=== PATIENT | male | born 1955 | race American Indian/Alaskan Native ===

== ENCOUNTER 2016-11-11 01:21 | Emergency (ER) | payer OTHER ==
[2016-11-11 03:04] VITALS: BP 190/90
== END 2016-11-11 05:00 | disposition left against medical advice (07) ==
LOC: ED 01:21
DX: R53.1 Weakness (principal); Z53.21 Procedure and treatment not carried out due to patient leaving prior to being seen by health care provider

== ENCOUNTER 2017-02-28 07:06 | Emergency (ER) | payer OTHER ==
[2017-02-28 07:30] VITALS: BP 177/94
[2017-02-28 08:07] LABS: Basophils % (Auto) 0.9 % (0.0-1.8); Eosinophils % (Auto) 3.5 % (0.0-4.3); Hematocrit 35.8 % (35.5-45.6); Hemoglobin 11.4 gm/dl (11.8-15.2); Mean Corpuscular HGB Conc 32 % (32-34); Mean Corpuscular Volume 81 fl (84-94); Platelet Count 180 K/mm3 (140-440); Red Blood Count 4.42 M/mm3 (3.65-5.03); White Blood Count 6.1 K/mm3 (4.5-11.0)
[2017-02-28 08:09] LABS: Mean Corpuscular Hemoglobin 26 pg (28-32)
[2017-02-28 08:10] LABS: Creatine Kinase MB 13.2 ng/mL (0.0-4.0)
[2017-02-28 08:11] LABS: Anion Gap 16 mmol/L; Blood Urea Nitrogen 16 mg/dL (9-20); Calcium 9.1 mg/dL (8.4-10.2); Carbon Dioxide 27 mmol/L (22-30); Chloride 99.8 mmol/L (98-107); Creatine Kinase 608 units/L (55-170); Glucose 84 mg/dL (75-100); Potassium 4.1 mmol/L (3.6-5.0); Sodium 139 mmol/L (137-145)
--- NOTE | 2017-03-01 13:27 | ED Elopement Review ---
ED Pt Elopement review - Results review Lab results: Laboratory Tests 02/28/17 02/28/17 07:34 07:34 WBC 6.1 RBC 4.42 Hgb 11.4 L Hct 35.8 MCV 81 L MCH 26 L MCHC 32 RDW 20.0 H Plt Count 180 Lymph % (Auto) 31.1 [place] % (Auto) 15.2 H Eos % (Auto) 3.5 Baso % (Auto) 0.9 Lymph # 1.9 [place] # 0.9 H Eos # 0.2 Baso # 0.1 Seg Neutrophils % 49.3 Seg Neutrophils # 3.0 Sodium 139 Potassium 4.1 Chloride 99.8 Carbon Dioxide 27 Anion Gap 16 BUN 16 Creatinine 0.8 Estimated GFR > 60 BUN/Creatinine Ratio 20.00 Glucose 84 Calcium 9.1 Total Creatine Kinase 608 H CK-MB (CK-2) Rel Index 2.1 Troponin T < 0.010 - Call Back decision Pt Call Back Decision: No action required
== END 2017-02-28 07:35 | disposition left against medical advice (07) ==
LOC: ED 07:06
DX: R07.9 Chest pain, unspecified (principal); Z53.21 Procedure and treatment not carried out due to patient leaving prior to being seen by health care provider
CPT/HCPCS: 36415; 80048; 82550; 82553; 84484; 85025; 93005; 93010

== ENCOUNTER 2017-05-10 00:18 | Emergency (ER) | payer SELFPAY ==
[2017-05-10 00:56] LABS: Basophils % (Auto) 0.7 % (0.0-1.8); Eosinophils % (Auto) 1.9 % (0.0-4.3); Hematocrit 40.3 % (35.5-45.6); Hemoglobin 13.1 gm/dl (11.8-15.2); Mean Corpuscular HGB Conc 33 % (32-34); Mean Corpuscular Hemoglobin 28 pg (28-32); Mean Corpuscular Volume 86 fl (84-94); Platelet Count 200 K/mm3 (140-440); Red Blood Count 4.71 M/mm3 (3.65-5.03); Red Cell Distribution Width 17.3 % (13.2-15.2); White Blood Count 6.3 K/mm3 (4.5-11.0)
[2017-05-10 01:06] LABS: Anion Gap 18 mmol/L; BUN/Creatinine Ratio 24.44; Blood Urea Nitrogen 22 mg/dL (9-20); Calcium 9.1 mg/dL (8.4-10.2); Carbon Dioxide 25 mmol/L (22-30); Chloride 98.6 mmol/L (98-107); Glucose 89 mg/dL (75-100); Potassium 3.9 mmol/L (3.6-5.0); Sodium 138 mmol/L (137-145)
[2017-05-10 01:07] LABS: INR 0.97 (0.87-1.13)
[2017-05-10 01:08] LABS: Partial Thromboplastin Time 29.5 Sec. (24.2-36.6)
--- NOTE | 2017-05-10 01:26 | Cat Scan Report ---
FINAL REPORT PROCEDURE: CT HEAD/BRAIN WO CON TECHNIQUE: Computerized tomography of the head was performed without contrast material. HISTORY: LT SIDED NUMBNESS H/A COMPARISON: No prior studies are available for comparison. FINDINGS: There is a 2.3 centimeter mass in the sella turcica which could be pituitary adenoma. Other etiologies not excluded. Correlation with contrast-enhanced MRI suggested. There is no hemorrhage, edema, mass effect or midline shift. There is mild central and cortical atrophy. There is no hydrocephalus. Ventricles and cortical sulci are appropriate for the patient's age. The bony calvarium is intact. Paranasal sinuses are clear. IMPRESSION: There is no hemorrhage, edema, mass effect or midline shift. There is a 2.3 centimeter mass in the sella turcica which could be pituitary adenoma. Other etiologies not excluded. Correlation with contrast-enhanced MRI suggested.
--- NOTE | 2017-05-10 06:31 | Emergency Department Report ---
ED Neuro Deficit HPI - General Chief Complaint: Neuro Symptoms/Deficit Stated Complaint: LEFT SIDE NUMBNESS Time Seen by Provider: 05/10/17 06:28 Source: patient Mode of arrival: Ambulatory Limitations: No Limitations - History of Present Illness Initial Comments: Patient reports a vague hemisensory numbness which did not involve his face. He complained of a mild headache at triage but this has resolved. He took 2 aspirin prior to arrival. Patient states that he was concerned with either a stroke or poor circulation. He reports he has had dark toes on his left foot chronically. He has never had his circulation evaluated in his foot prior. He is not complaining of numbness at this juncture. Before my arrival he had a CT of his head which showed a likely pituitary adenoma. The patient reports to me that he had a CT scan of his head but not an MRI prior. This was more than 5 years ago where a similar finding was discussed with him. He has no prior history of stroke. He was found to be hypertensive. -: Gradual, minutes(s) Location: left arm, left leg Presenting Symptoms: Absent: Weak/Paralyzed One Side, Sudden, Severe Headache, Blurred/Loss of Vision, Facial Droop/Numbness, Unable to Speak Clearly, Altered Mental Status History of same: No Place: home Severity: mild, moderate Quality: numb Improves With: none Worsens With: none On Anticoagulants: No Context: gradual onset Associated Symptoms: denies other symptoms Treatments Prior to Arrival: Aspirin - Related Data Home Medications: Home Medications Medication Instructions Recorded Confirmed Last Taken Losartan/Hydrochlorothiazide 1 each PO QDAY 12/14/16 12/14/16 12/14/16 06:30 [Losartan-Hctz 50-12.5 mg Tab] Allergies/Adverse Reactions: Allergies Allergy/AdvReac Type Severity Reaction Status Date / Time No Known Allergies Allergy Verified 12/14/16 07:23 ED Review of Systems ROS: Stated complaint: LEFT SIDE NUMBNESS Other details as noted in HPI Constitutional: denies: chills, fever Eyes: denies: eye pain, eye discharge, vision change ENT: denies: ear pain, throat pain Respiratory: denies: cough, shortness of breath, wheezing Cardiovascular: denies: chest pain, palpitations Endocrine: no symptoms reported Gastrointestinal: denies: abdominal pain, nausea, diarrhea Genitourinary: denies: urgency, dysuria Musculoskeletal: denies: back pain, joint swelling, arthralgia Skin: denies: rash, lesions Neurological: headache, numbness. denies: weakness, paresthesias Psychiatric: denies: anxiety, depression Hematological/Lymphatic: denies: easy bleeding, easy bruising ED Past Medical Hx - Past Medical History Previous Medical History?: Yes Hx Hypertension: Yes Hx CVA: No Hx Heart Attack/AMI: No Hx Congestive Heart Failure: No Hx Diabetes: Yes (NO MEDICATIONS) Hx Deep Vein Thrombosis: No Hx Pulmonary Embolism: No Hx GERD: No Hx Liver Disease: Yes (hep c. Pt has had anti viral therapy in past) Hx Renal Disease: No Hx Sickle Cell Disease: No Hx Arthritis: No Hx Headaches / Migraines: No Hx Seizures: No Hx Kidney Stones: No Hx Psychiatric Treatment: No Hx Asthma: No Hx COPD: No Hx Tuberculosis: No Hx Dementia: No Hx HIV: No Additional medical history: hep C - Surgical History Past Surgical History?: No Hx Coronary Stent: No Hx Open Heart Surgery: No Hx Pacemaker: No Hx Internal Defibrillator: No Hx Cholecystectomy: No Hx Appendectomy: No Hx Breast Surgery: No - Social History Smoking Status: Never Smoker Substance Use Type: Alcohol - Medications Home Medications: Home Medications Medication Instructions Recorded Confirmed Last Taken Type Losartan/Hydrochlorothiazide 1 each PO QDAY 12/14/16 12/14/16 12/14/16 06:30 History [Losartan-Hctz 50-12.5 mg Tab] ED Neuro Physical Exam - General Limitations: No Limitations General appearance: alert, in no apparent distress Suspected Stroke: No - Head Head exam: Present: atraumatic, normocephalic - Eye Eye exam: Present: normal appearance. Absent: scleral icterus - ENT ENT exam: Present: mucous membranes moist - Neck Neck exam: Present: normal inspection. Absent: tenderness, meningismus - Respiratory Respiratory exam: Present: normal lung sounds bilaterally. Absent: respiratory distress - Cardiovascular Cardiovascular Exam: Present: regular rate, normal rhythm. Absent: systolic murmur, diastolic murmur, rubs, gallop - GI/Abdominal GI/Abdominal exam: Present: soft, normal bowel sounds. Absent: distended, tenderness, guarding, rebound, rigid - Rectal Rectal exam: Present: deferred - Extremities Exam Extremities exam: Present: normal inspection - Back Exam Back exam: Present: normal inspection - Neurological Exam Neurological exam: Present: alert, oriented X3, CN II-XII intact. Absent: motor sensory deficit - NIHSS Assessment Interval: Baseline 1a. Level of Consciousness: alert 1b. LOC Questions: answers correctly 1c. LOC Commands: performs tasks correctly 2. Best Gaze: normal 3. Visual: no visual loss 4. Facial Palsy: normal symmetrical movement 5b. Motor Arm Right: no drift 5a. Motor Arm Left: no drift 6a. Motor Leg Left: no drift 6b. Motor Leg Right: no drift 7. Limb Ataxia: absent 8. Sensory: normal 9. Best Language: no aphasia 10. Dysarthria: normal 11. Extinction/Inattention: no abnormality Total Score: 0 Stroke Severity: No Stroke Symptoms - Psychiatric Psychiatric exam: Present: normal affect, normal mood - Skin Skin exam: Present: dry, intact, other (left foot is a bit cooler than the right foot). Absent: rash - Other Other exam information: Patient has a palpable posterior tibial pulse on the right but I do not feel foot pulses on the left. Right foot is a bit warmer than the left foot. The patient has onychomycosis but does have some black toenails. He appears to have decreased capillary refill in his foot as well. ED Course Vital Signs 05/10/17 05/10/17 05/10/17 00:22 04:19 05:59 Temperature 98.5 F Pulse Rate 71 63 64 Respiratory 22 18 18 Rate Blood Pressure 156/89 182/94 Blood Pressure 171/66 [Left] Blood Pressure [Right] O2 Sat by Pulse 98 100 100 Oximetry 05/10/17 07:44 Temperature 98 F Pulse Rate 95 H Respiratory 18 Rate Blood Pressure Blood Pressure [Left] Blood Pressure 189/103 [Right] O2 Sat by Pulse 95 Oximetry - Reevaluation(s) Reevaluation #1: I believe the patient is correct that he does have poor circulation to his left foot. He states that his foot has looked the same way for months if not years. He has never had an assessment for peripheral vascular disease which I believe he does have. Patient is found to have a likely pituitary adenoma. His hemisensory symptoms are consistent with cerebrovascular disease. He is hypertensive so he is at rest. He will be admitted for a stroke workup and a peripheral vascular disease workup. He does not require acute intervention at this time. He is not a candidate for TPA and has a stroke score of 0. He is not suffering from acute limb ischemia. Pending his vascular studies a vascular surgery consult may be appropriate. Hospitalist has been informed. 05/10/17 07:53 - Lab Data Result diagrams: 05/10/17 00:33 05/10/17 00:33 Lab Results 05/10/17 05/10/17 05/10/17 Range/Units 00:28 00:33 00:33 WBC 6.3 (4.5-11.0) K/mm3 RBC 4.71 (3.65-5.03) M/mm3 Hgb 13.1 (11.8-15.2) gm/dl Hct 40.3 (35.5-45.6) % MCV 86 (84-94) fl MCH 28 (28-32) pg MCHC 33 (32-34) % RDW 17.3 H (13.2-15.2) % Plt Count 200 (140-440) K/mm3 Lymph % (Auto) 25.2 (13.4-35.0) % [place] % (Auto) 12.6 H (0.0-7.3) % Eos % (Auto) 1.9 (0.0-4.3) % Baso % (Auto) 0.7 (0.0-1.8) % Lymph # 1.6 (1.2-5.4) K/mm3 [place] # 0.8 (0.0-0.8) K/mm3 Eos # 0.1 (0.0-0.4) K/mm3 Baso # 0.0 (0.0-0.1) K/mm3 Seg Neutrophils % 59.6 (40.0-70.0) % Seg Neutrophils # 3.7 (1.8-7.7) K/mm3 PT 13.4 (12.2-14.9) Sec. INR 0.97 (0.87-1.13) APTT 29.5 (24.2-36.6) Sec. Thrombin Time 16.0 (15.1-19.6) Sec. Sodium (137-145) mmol/L Potassium (3.6-5.0) mmol/L Chloride (98-107) mmol/L Carbon Dioxide (22-30) mmol/L Anion Gap mmol/L BUN (9-20) mg/dL Creatinine (0.8-1.5) mg/dL Estimated GFR ml/min BUN/Creatinine Ratio % Glucose (75-100) mg/dL POC Glucose 96 (70-105) Calcium (8.4-10.2) mg/dL Troponin T (0.00-0.029) ng/mL 05/10/17 Range/Units 00:33 WBC (4.5-11.0) K/mm3 RBC (3.65-5.03) M/mm3 Hgb (11.8-15.2) gm/dl Hct (35.5-45.6) % MCV (84-94) fl MCH (28-32) pg MCHC (32-34) % RDW (13.2-15.2) % Plt Count (140-440) K/mm3 Lymph % (Auto) (13.4-35.0) % [place] % (Auto) (0.0-7.3) % Eos % (Auto) (0.0-4.3) % Baso % (Auto) (0.0-1.8) % Lymph # (1.2-5.4) K/mm3 [place] # (0.0-0.8) K/mm3 Eos # (0.0-0.4) K/mm3 Baso # (0.0-0.1) K/mm3 Seg Neutrophils % (40.0-70.0) % Seg Neutrophils # (1.8-7.7) K/mm3 PT (12.2-14.9) Sec. INR (0.87-1.13) APTT (24.2-36.6) Sec. Thrombin Time (15.1-19.6) Sec. Sodium 138 (137-145) mmol/L Potassium 3.9 (3.6-5.0) mmol/L Chloride 98.6 (98-107) mmol/L Carbon Dioxide 25 (22-30) mmol/L Anion Gap 18 mmol/L BUN 22 H (9-20) mg/dL Creatinine 0.9 (0.8-1.5) mg/dL Estimated GFR > 60 ml/min BUN/Creatinine Ratio 24.44 % Glucose 89 (75-100) mg/dL POC Glucose (70-105) Calcium 9.1 (8.4-10.2) mg/dL Troponin T < 0.010 (0.00-0.029) ng/mL Laboratory Results - last 24 hr 05/10/17 05/10/17 05/10/17 00:33 00:33 00:33 WBC 6.3 RBC 4.71 Hgb 13.1 Hct 40.3 MCV 86 MCH 28 MCHC 33 RDW 17.3 H Plt Count 200 Lymph % (Auto) 25.2 [place] % (Auto) 12.6 H Eos % (Auto) 1.9 Baso % (Auto) 0.7 Lymph # 1.6 [place] # 0.8 Eos # 0.1 Baso # 0.0 Seg Neutrophils % 59.6 Seg Neutrophils # 3.7 PT 13.4 INR 0.97 APTT 29.5 Thrombin Time 16.0 Sodium 138 Potassium 3.9 Chloride 98.6 Carbon Dioxide 25 Anion Gap 18 BUN 22 H Creatinine 0.9 Estimated GFR > 60 BUN/Creatinine Ratio 24.44 Glucose 89 Calcium 9.1 Troponin T < 0.010 Critical care attestation.: If time is entered above; I have spent that time in minutes in the direct care of this critically ill patient, excluding procedure time. ED Disposition Clinical Impression: Hemisensory deficit, Peripheral vascular disease of lower extremity, Essential hypertension Disposition: OP ADMIT IP TO THIS HOSP Is pt being admited?: Yes Does the pt Need Aspirin: Yes Condition: Stable Instructions: Hypertension (ED) Referrals: PRIMARY CARE, [Primary Care Provider] - 3-5 Days Time of Disposition: 07:55
[2017-05-10] MEDS ORDERED: ASPIRIN PO ONE (07:31)
[2017-05-10 07:45] VITALS: BP 189/103
--- NOTE | 2017-05-10 08:16 | Admit Criteria Form ---
Admission Criteria Documentation: NEUROLOGY GRG Clinical Indications for Admission to Inpatient Care (Place ' X' for any and all applicable criteria): Hospital admission is needed for appropriate care of the patient because of 1 or more of the following: [ ]I. Encephalitis [ ]II. Severe [place] [place] [place] infections indicated by 1 or more of the following(1)(2)(3) : [ ]a) Intracranial abscess [ ]b) Spinal abscess or myelitis [ ]c) Tuberculous or other nonbacterial, nonviral [place] infection(8) [ ]III. Vasculitis and 1 or more of the following(14)(15): []a) Altered mental status that is severe or persistent or other acute neurologic change []b) Psychosis []c) Seizure [ ]IV. Status epilepticus or repetitive seizures not controlled with emergent treatment [A] (7)(8) [ ]V. Altered mental status that is severe or persistent [ ]. Transient alteration in consciousness with high-risk etiology; examples include (12)(13): [ ]a) Cardiovascular source [ ]b) Cataplexy [ ]VII. Cerebral aneurysm requiring ANY ONE of the following(14): [ ]a) IV antihypertensives or vasoactive agents [ ]b) Sedation and analgesia for suspected leak [ ]c) Need for external ventricular drainage and cerebral perfusion pressure monitoring [ ]d) Emergent evaluation to determine need for surgical clipping or endovascular coiling by interventional radiology. If surgery is required ( Also use Craniotomy, Supratentorial, for Surgery of Bleeding Intracranial Aneurysm (for bleeding aneurysm) or Craniotomy, Supratentorial (for nonbleeding aneurysm) as appropriate. [ ]VIII. New-onset severe neurologic symptom requiring inpatient care indicated by ANY ONE of the following: [ ]a) Aphasia(15) [ ]b) Weakness (grade 3 or less) [ ]c) Paralysis (eg, hemiplegia) [ ]d) Spasticity(16) [ ]e) Dystonia [ ]e) Ataxia(17) [ ]f) Amnesia(18) [ ]g) Involuntary movements(19) [ ]h) Vertigo [ ] Visual loss [ ]i) Other severe neurologic finding (eg, papilledema, mass effect on imaging, myoclonus not treatable at alternative level of care (eg, observation care) [ ]IX. Guillain-Lawrence syndrome(20) [ ]X. Myasthenia gravis crisis or inpatient monitoring need as indicated by 1 or more of the following(21): [ ]a) Intensive treatment (eg, course of plasmapheresis) with inadequate outpatient situation to monitor patients status [ ]b) Inadequate airway protection [ ]c) Respiratory insufficiency requiring intubation or inpatient. monitoring [ ]d) Progressive dysphagia with failure to thrive [ ]XI. Multiple sclerosis or other acute demyelinating disease requiring inpatient care as indicated by 1 or more of the following (22)(23): [ ]a) Acute severe deterioration requiring inpatient treatment (eg, IV steroids, plasmapheresis, close observation) [ ]b) Acute complication requiring inpatient care (eg, sepsis, severe decubitus, aspiration) [ ]XII.Parkinson disease requiring inpatient care (Also use Optimal Recovery Care Criteria or General Recovery Criteria as appropriate) indicated by 1 or more of the following(25): [ ]a) Infection (eg, aspiration pneumonia) not treatable at alternative level of care [ ]b Dehydration that is severe or persistent [ ]c) Life-threatening agitation or psychotic behavior not treatable on emergency, observation care, or alternative level (eg, residential) basis [ ]d) Severe medication withdrawal effects (eg, freezing, neuroleptic malignant syndrome) not responsive to emergency and observation care treatment ( as appropriate) [ ]e) Other severe manifestation not treatable at alternative level of care [ ]XII. Amyotrophic lateral sclerosis with inpatient care needs as indicated by ANY ONE of the following(26): [ ]a) Acute complications (eg, aspiration pneumonia, sepsis ) requiring inpatient care ( see other optimal Recovery Guideline as appropriate) [ ]b) Dehydration that is severe persistent AND artificial support desired [ ]c) Inadequate airway protection AND artificial support desired [ ]d) Severe ventilatory insufficiency AND artificial support desired [ ]XIII. Myasthenia gravis crisis or inpatient monitoring need as indicated by 1 or more of the following(21): [] a) Inadequate airway protection []b) Respiratory insufficiency requiring intubation or inpatient monitoring []c) Progressive dysphagia with failure to thrive []d) Intensive treatment (e.g., course of plasmapheresis) with inadequate outpatient situation to monitor patients status [ ]XIV. Multiple sclerosis or other acute demyelinating disease requiring inpatient care indicated by 1 or more of the following[C](36)(43)(44)(45)(46): []a) Acute severe deterioration requiring inpatient treatment (eg, IV steroids, plasmapheresis, close observation) []b) Acute complication requiring inpatient care (eg, sepsis, severe decubitus, aspiration) [ ]XV. Intracranial hypertension (e.g., pseudotumor cerebri) requiring inpatient care (e.g., acute visual loss, inadequate oral intake) (47)(48)(49) [ ]XVI. Parkinson disease requiring inpatient care (Also use Optimal Recovery Care Criteria or General Recovery Criteria as appropriate) indicated by 1 or more of the following(25): [] a) Infection (e.g., aspiration pneumonia) not treatable at alternative level of care []b) Volume depletion not responsive to emergency and observation care treatment (as appropriate) []c) Life-threatening agitation or psychotic behavior not treatable on emergency, observation care, or alternative level (e.g., residential) basis []d) Severe medication withdrawal effects (e.g., freezing, neuroleptic malignant syndrome) not responsive to emergency and observation care treatment (as appropriate) []e) Other severe manifestation not treatable at alternative level of care [ ]XVII. Amyotrophic lateral sclerosis with inpatient care needs as indicated by1 or more of the following(42): []a) Acute complications (eg, aspiration pneumonia, sepsis) requiring inpatient care (see other Optimal Recovery Guideline or General Recovery Guideline as appropriate) []b) Dehydration that is severe or persistent AND artificial support desired []c) Inadequate airway protection AND artificial support desired []d) Severe ventilatory insufficiency AND artificial support desired [ ]XVIII. Severe myopathy, neuropathy, or other neuromuscular disease indicated by 1 or more of the following(42)(52)(53)(54): []a ) New-onset severe diffuse weakness (eg, strength 3/5 or less) []b) Severe dysphagia []c) Dyspnea at rest or with minimal exertion (new) []d) Inadequate airway protection []e) Inadequate ventilation indicated by 1 or more of the following : i) Partial pressure of carbon dioxide greater than 44 mm Hg ( 5.9 kPa) (new) ii) Reduced peak expiratory flow rate (new) iii) Vital capacity less than 50% of predicted (less than 15 mL/kg) iv) Peak inspiratory force less negative than -30 cm H2O (- 2942 Pa) [ ]XVII.Complications of congenital or degenerative disease (eg, infection, seizures, dehydration, injury) not responsive to emergency and observation care treatment (as appropriate ) [C](16)(29)(30) [ ]XVIII.Suspected or confirmed nerve or muscle toxic injury, including ANY ONE of the following: [ ]a) Rhabdomyolysis(31) i) Acute renal failure ii) Dehydration that is severe or persistent iii) Altered mental status that is severe or persistent iv) Electrolyte abnormality that remains after emergency or observation level care ( as appropriate) [ ]b) Botulism(32) [ ]c) Other severe toxin-induced sign or symptom [ ]XIX. Neurologic trauma requiring inpatient treatment (medical) indicated by ANY ONE of the following(33)(34): [ ]a) Vital signs or neurologic signs more frequently than every 4 hours [ ]b) Hyperosmolar therapy [ ]c) Respiratory monitoring [ ]d) Intracranial pressure monitoring and treatment [ ]e) Stabilization and immobilization device placement (eg, braces, body jacket) [ ]f) Intubation & mechanical ventilation for airway protection or therapeutic hyperventilation [ ]g) Other treatment or monitoring needed that requires inpatient level of care [ ]XX.Complications of neurologic devices (eg, ventricular shunt, neurostimulator) requiring 1 or more of the following(35)(36): [ ]a) IV antibiotics with monitoring while awaiting culture results [ ]b) Monitoring for hydrocephalus [X ]XXI. Neurology condition symptom, or finding for which emergency and observation care have failed or are not considered appropriate. See General Criteria: Observation Care ISC, General Admission Criteria GRG, or Pediatric General Admission Criteria GRG guideline as appropriate. The original [facility] [employer] content created by [employer] [facility] [employer] [employer] has been revised. The portions of the content which have been revised are identified through the use of italic text or in bold, and [facility] has neither reviewed nor approved the modified material. All other unmodified content is copyright [facility] Please see references footnoted in the original [facility] [employer] edition 2016 Admission Criteria Met: Yes
[2017-05-10] MEDS ORDERED: MILK OF MAGNESIA PO PRN (08:39)
[2017-05-10] MEDS ORDERED: MORPHINE IV PRN (08:39)
[2017-05-10] MEDS ORDERED: ZOFRAN IV PRN (08:39)
[2017-05-10] MEDS ORDERED: DULCOLAX PR PRN (08:39)
[2017-05-10] MEDS ORDERED: TYLENOL PO PRN (08:39)
--- NOTE | 2017-05-10 08:50 | XRay Report ---
AP CHEST: HISTORY: Hypertension AP view of the chest demonstrates a normal mediastinal and cardiac contour with clear lungs and normal bony and soft tissue structures. IMPRESSION: Unremarkable AP chest.
[2017-05-10] MEDS ORDERED: LOVENOX SUB-Q SCH (10:00)
[2017-05-10] MEDS ORDERED: ASPIRIN PO SCH (10:00)
--- NOTE | 2017-05-11 11:50 | Vascular Lab Report ---
LOWER EXTREMITY ARTERIAL DUPLEX: REASON FOR EXAM: Peripheral arterial disease. COMMENTS ON THE RIGHT: Triphasic waveforms are seen proximally. Triphasic waveforms are seen distally. No significant velocity gradients are identified. No focal significant plaque is identified. Findings are consistent with normal perfusion. Findings are consistent with the ability to heal distal wounds. COMMENTS ON THE LEFT: Triphasic waveforms are seen proximally. Biphasic waveforms are seen distally. No significant velocity gradients are identified. No focal significant plaque is identified. Findings are consistent with normal perfusion. Findings are consistent with the ability to heal distal wounds. IMPRESSION: RIGHT: Essentially normal arterial flow. LEFT:Essentially normal arterial flow.
== END 2017-05-10 10:00 | disposition admitted as inpatient to this hospital (09) ==
LOC: ED 00:18
DX: I73.9 Peripheral vascular disease, unspecified (principal); I10 Essential (primary) hypertension
CPT/HCPCS: 36415; 70450; 71010; 80048; 82962; 84484; 85025; 85610; 85670; 85730; 93005; 93010; 93925

== ENCOUNTER 2017-08-17 01:04 | Emergency (ER) | payer SELFPAY ==
[2017-08-17 09:03] VITALS: BP 169/88
--- NOTE | 2017-08-17 10:09 | Emergency Department Report ---
Upper Extremity - HPI Chief Complaint: Extremity Injury, Upper Stated Complaint: LT ELBOW INJURY Time Seen by Provider: 08/17/17 09:16 Upper Extremity: Right Elbow (pain and swelling) Occurred When: >5 Days (6 months) Mechanism: Other (h/o bursitis) Severity: severe (7/10) Symptoms: Yes Pain with Movement (lt elbow), Yes Swelling (left swelling), No Deformity, No Limited Range of Movement, No Numbness, No Weakness, No Bruising/ Ecchymosis, No Laceration or Abrasion Other History: Patient here reports that he has flare up of bursitis to his left elbow. He said he has had similar incident in the past that it was drained. Denies any fever or chills. Denies any redness at site. Pain is 7 out of 10 only with movement. Pain is better or resting. He has not taken any [id number] medication.. Said this pain increasing over the past 6 months but he has not had any time to seek medical attention. Tetanus vaccine is up-to -date. ED Review of Systems ROS: Stated complaint: LT ELBOW INJURY Other details as noted in HPI Comment: All other systems reviewed and negative Constitutional: no symptoms reported Respiratory: no symptoms reported Cardiovascular: denies: chest pain, palpitations, edema, syncope Gastrointestinal: denies: abdominal pain, nausea, vomiting, diarrhea, constipation Musculoskeletal: joint swelling, arthralgia. denies: back pain, myalgia Skin: denies: rash Neurological: denies: headache, weakness, numbness, paresthesias, confusion, abnormal gait, vertigo ED Past Medical Hx - Past Medical History Previous Medical History?: Yes Hx Hypertension: Yes Hx CVA: No Hx Heart Attack/AMI: No Hx Congestive Heart Failure: No Hx Diabetes: Yes (NO MEDICATIONS) Hx Deep Vein Thrombosis: No Hx Pulmonary Embolism: No Hx GERD: No Hx Liver Disease: Yes (hep c. Pt has had anti viral therapy in past) Hx Renal Disease: No Hx Sickle Cell Disease: No Hx Arthritis: No Hx Headaches / Migraines: No Hx Seizures: No Hx Kidney Stones: No Hx Psychiatric Treatment: No Hx Asthma: No Hx COPD: No Hx Tuberculosis: No Hx Dementia: No Hx HIV: No Additional medical history: hep C - Surgical History Past Surgical History?: No Hx Coronary Stent: No Hx Open Heart Surgery: No Hx Pacemaker: No Hx Internal Defibrillator: No Hx Cholecystectomy: No Hx Appendectomy: No Hx Breast Surgery: No - Family History Family history: no significant - Social History Smoking Status: Never Smoker Substance Use Type: Alcohol - Medications Home Medications: Home Medications Medication Instructions Recorded Confirmed Last Taken Type Losartan/Hydrochlorothiazide 1 each PO QDAY 12/14/16 12/14/16 12/14/16 06:30 History [Losartan-Hctz 50-12.5 mg Tab] Naproxen 500 mg PO Q12H PRN #12 tablet 08/17/17 Unknown Rx Upper Extremity Exam - Exam General: Vital signs noted. No distress. Alert and acting appropriately. This is a 62-year-old male well-nourished well-developed in no acute distress Head and Torso: No HEENT Abnormality, No Neck Tenderness, No Chest/Lungs Abnormality, No Abdominal Tenderness, No Back Tenderness Shoulder Exam: Yes Normal Range of Motion in Shoulder, No Shoulder Tenderness, No Clavicle Tenderness, No Shoulder Deformity, No AC Joint Tenderness Arm Exam: No Arm/Humerus Tenderness, No Arm Deformity Elbow: Yes Elbow Tenderness (left elbow, swelling and effusion), Yes Normal Range of Motion in Elbow, No Elbow Deformity Forearm: No Forearm Tenderness, No Forearm Deformity, No Pain with Pronation, No Pain with Supination Wrist: Yes Normal ROM in Wrist, No Wrist Tenderness, No Wrist Deformity, No Snuffbox Tenderness, No Pain with Axial Thumb Compression Hand: Yes Normal ROM in Digit(s), No Hand Tenderness, No Hand Deformity, No Digit Tenderness, No Digit(s) Deformity, No Tendon Dysfunction CMS Exam: Yes Normal Distal Pulses, Yes Normal Capillary Refill, Yes Normal Distal Sensation, No Broken Skin ED Course Vital Signs 08/17/17 08/17/17 01:18 09:02 Temperature 98.2 F 97.8 F Pulse Rate 63 67 Respiratory 20 16 Rate Blood Pressure 158/85 Blood Pressure 169/88 [Left] O2 Sat by Pulse 100 100 Oximetry - Reevaluation(s) Reevaluation #1: 08/17/17 11:35 Patient given Motrin 800 mg in emergency room for left elbow pain .See procedure note for incision and drainage. ED Medical Decision Making - Medical Decision Making ED course: Patient here reports flare up of bursitis and this has been going on for 6 months and he has not had time to seek medical attention. Physical findings for positive effusion, swelling to left elbow. Minimal tenderness to palpate and no erythema. Under sterile procedure, area cleansed with iodine and normal saline, 5 mL of 1% lidocaine injected in the area and aspirated 10 mL of yellow drainage without any sediments. No bloody drainage noted. Patient tolerated procedure well and sterile dry dressing placed the side. I instructed patient that I'll put him on anti-inflammatory and he will need to keep affected ear clean and dry and follow-up with orthopedic doctor regarding recurrent fluid collection in left elbow. He voiced understanding of discharge instruction and treatment plan and discharged home in stable condition with prescription for naproxen. Critical care attestation.: If time is entered above; I have spent that time in minutes in the direct care of this critically ill patient, excluding procedure time. ED Disposition Clinical Impression: Arthralgia of left elbow, Effusion, left elbow Disposition: DC- TO HOME OR SELFCARE Is pt being admited?: No Does the pt Need Aspirin: No Condition: Stable Instructions: Arthralgia (ED), Elbow Bursitis (ED) Additional Instructions: Please keep affected area clean and dry Naproxen as prescribed for inflammation Follow-up with Dr. Comer who is orthopedic doctor for chronic elbow bursitis Prescriptions: Naproxen 500 mg PO Q12H PRN #12 tablet PRN Reason: Pain Referrals: MANJIT COMER MD [Staff Physician] - 3-5 Days Forms: Work/School Release Form(ED)
[2017-08-17] MEDS ORDERED: XYLOCAINE 1% MPF 5 mL INFILTRATI ONE (10:10)
[2017-08-17] MEDS ORDERED: MOTRIN PO ONE (10:10)
== END 2017-08-17 14:01 | disposition left against medical advice (07) ==
LOC: ED 01:04
DX: M25.422 Effusion, left elbow (principal); I10 Essential (primary) hypertension; E11.9 Type 2 diabetes mellitus without complications
CPT/HCPCS: 99282

== ENCOUNTER 2017-10-25 10:51 | Emergency (ER) | payer SELFPAY | END 2017-10-25 17:45 | disposition left against medical advice (07) | LOC: ED 10:51 | DX: Z53.21 Procedure and treatment not carried out due to patient leaving prior to being seen by health care provider (principal) ==

== ENCOUNTER 2017-12-07 04:13 | Emergency (ER) | payer SELFPAY ==
[2017-12-07 05:29] VITALS: BP 192/104
[2017-12-07] MEDS ORDERED: CATAPRES ONE (06:10)
[2017-12-07] MEDS ORDERED: CATAPRES PO ONE (06:16)
--- NOTE | 2017-12-07 06:21 | XRay Report ---
FINAL REPORT EXAM: XR FOOT 2V LT HISTORY: Swollen great toe. TECHNIQUE: Frontal lateral radiographs of the left foot were obtained. No prior studies are available for comparison. FINDINGS: There is no fracture or dislocation. There is mild soft tissue swelling seen along the 1st digit. There is degenerative change at the 1st interphalangeal joint, with medial and lateral marginal spurring, and subcentimeter probable subchondral cysts laterally. There minimal enthesopathic change along the posterior calcaneus, at the distal Achilles tendon insertion site. No other discrete osseous abnormality is seen. IMPRESSION: 1. No fracture or dislocation. 2. Mild soft tissue swelling seen along the 1st digit. [id number] degenerative changes at the 1st interphalangeal joint.
--- NOTE | 2017-12-07 09:41 | Emergency Department Report ---
ED Lower Extremity HPI - General Chief Complaint: Extremity Injury, Lower Stated Complaint: LT GREAT TOE SWELLING/PAIN Time Seen by Provider: 12/07/17 09:38 Source: patient Mode of arrival: Ambulatory Limitations: No Limitations - History of Present Illness Initial Comments: This is a 62 y.o. male presents with left great to pain and swelling since last night around 2300. Pain is 10/10 on scale and unbearable to anything to touch area. Pain is constant and worse with movement. Denies recent fall or injury to foot. History of diabetes mellitus type 2 and hepatitis C. Denies numbness, tingling or discoloration. He is able to partially bear weight to extremity. MD Complaint: foot injury (left great toe swollen and pain) -: Last night Time: 23:00 Injury: Foot: Left (left great toe) Type of Injury: unknown Place: home Severity: severe Severity scale (0 -10): 10 Improves With: nothing Worsens With: weight bearing, movement, palpation Associated Symptoms: able to partially bear weight - Related Data Home Medications Medication Instructions Recorded Confirmed Last Taken Losartan/Hydrochlorothiazide 1 each PO QDAY 12/14/16 12/14/16 12/14/16 06:30 [Losartan-Hctz 50-12.5 mg Tab] Previous Rx's Medication Instructions Recorded Last Taken Type Naproxen 500 mg PO Q12H PRN #12 tablet 08/17/17 Unknown Rx Allergies Allergy/AdvReac Type Severity Reaction Status Date / Time No Known Allergies Allergy Verified 12/14/16 07:23 ED Review of Systems ROS: Stated complaint: LT GREAT TOE SWELLING/PAIN Other details as noted in HPI Constitutional: denies: chills, fever Respiratory: denies: cough, shortness of breath, wheezing Cardiovascular: denies: chest pain, palpitations Gastrointestinal: denies: abdominal pain, nausea, diarrhea Musculoskeletal: joint swelling (great tow swelling and pain to touch) Skin: denies: rash, lesions ED Past Medical Hx - Past Medical History Previous Medical History?: Yes Hx Hypertension: Yes Hx CVA: No Hx Heart Attack/AMI: No Hx Congestive Heart Failure: No Hx Diabetes: Yes (NO MEDICATIONS) Hx Deep Vein Thrombosis: No Hx Pulmonary Embolism: No Hx GERD: No Hx Liver Disease: Yes (hep c. Pt has had anti viral therapy in past) Hx Renal Disease: No Hx Sickle Cell Disease: No Hx Arthritis: No Hx Headaches / Migraines: No Hx Seizures: No Hx Kidney Stones: No Hx Psychiatric Treatment: No Hx Asthma: No Hx COPD: No Hx Tuberculosis: No Hx Dementia: No Hx HIV: No Additional medical history: hep C - Surgical History Past Surgical History?: No Hx Coronary Stent: No Hx Open Heart Surgery: No Hx Pacemaker: No Hx Internal Defibrillator: No Hx Cholecystectomy: No Hx Appendectomy: No Hx Breast Surgery: No - Social History Smoking Status: Former Smoker Substance Use Type: Alcohol - Medications Home Medications: Home Medications Medication Instructions Recorded Confirmed Last Taken Type Losartan/Hydrochlorothiazide 1 each PO QDAY 12/14/16 12/14/16 12/14/16 06:30 History [Losartan-Hctz 50-12.5 mg Tab] Naproxen 500 mg PO Q12H PRN #12 tablet 08/17/17 Unknown Rx ED Physical Exam - General Limitations: No Limitations General appearance: alert, in no apparent distress - Respiratory Respiratory exam: Present: normal lung sounds bilaterally. Absent: respiratory distress - Cardiovascular Cardiovascular Exam: Present: regular rate, normal rhythm. Absent: systolic murmur, diastolic murmur, rubs, gallop - GI/Abdominal GI/Abdominal exam: Present: soft, normal bowel sounds - Expanded Lower Extremity Exam Left Hip exam: Present: full ROM, tenderness Upper Leg exam: Present: normal inspection, full ROM Knee exam: Present: normal inspection, full ROM Lower Leg exam: Present: normal inspection, full ROM Ankle exam: Present: normal inspection, full ROM Foot/Toe exam: Present: tenderness (on palpation of distal IP joint), swelling ( along 1st digit). Absent: laceration, ecchymosis, deformity, crepidus, dislocation, erythema, amputation, puncture wound, tenderness at base of 5th metatarsal - Neurological Exam Neurological exam: Present: alert, oriented X3, abnormal gait (partial weight bearing to left foot) - Skin Skin exam: Present: warm, dry, intact, normal color. Absent: rash ED Course Vital Signs 12/07/17 12/07/17 05:23 06:19 Temperature 98.5 F Pulse Rate 67 Blood Pressure 192/104 192/104 O2 Sat by Pulse 98 Oximetry ED Lower Extremity MDM - Radiology Data Radiology results: image reviewed Xray left foot IMPRESSION: 1. No fracture or dislocation. 2. Mild soft tissue swelling seen along the 1st digit. [id number] degenerative changes at the 1st interphalangeal joint. - Medical Decision Making This is a 62 y.o. male with painful swollen left great toe for 1 day. Xray of left foot obtained and read by radiologist. No fracture, mild soft tissure swelling along 1st digit, and mild to moderated degenerative changes. Ordered uric acid, BMP, & CBC. Patient eloped prior to labs. Critical care attestation.: If time is entered above; I have spent that time in minutes in the direct care of this critically ill patient, excluding procedure time. ED Disposition Clinical Impression: Left against medical advice Disposition: DC-07 LEFT AGAINST MED ADVICE Is pt being admited?: No Condition: Stable Referrals: PRIMARY CARE, [Primary Care Provider] - 3-5 Days
== END 2017-12-07 11:08 | disposition left against medical advice (07) ==
LOC: ED 04:13
DX: M79.675 Pain in left toe(s) (principal); I10 Essential (primary) hypertension; E11.9 Type 2 diabetes mellitus without complications; Z87.891 Personal history of nicotine dependence
CPT/HCPCS: 82962; 99283

== ENCOUNTER 2017-12-07 13:17 | Emergency (ER) | payer SELFPAY ==
[2017-12-07 13:53] VITALS: BP 128/84
== END 2017-12-08 01:48 | disposition left against medical advice (07) ==
LOC: ED 13:17
DX: M79.89 Other specified soft tissue disorders (principal); Z53.21 Procedure and treatment not carried out due to patient leaving prior to being seen by health care provider

== ENCOUNTER 2017-12-18 18:14 | Emergency (ER) | payer SELFPAY ==
--- NOTE | 2017-12-18 20:55 | Emergency Department Report ---
<TIANNA BERMAN - Last Filed: 12/18/17 20:51> ED Eye Problem HPI - General Chief complaint: Eye Problems Stated complaint: EYE PROBLEMS Time Seen by Provider: 12/18/17 20:36 Source: patient Mode of arrival: Ambulatory Limitations: No Limitations - History of Present Illness Initial comments: Patient is a 62-year-old Citizen Of [place] male who is presented with right eye issues. Patient states that from the right eye he can only see on of certain things and he states that his inferior visual field feels as though something is blocking his view. Patient is worried that he has a cataract. Patient states he feels like something is in front of his field of view. Patient states he has a slight bandlike headache. Patient states he knows he has been off of his blood pressure medicines and is requesting lisinopril. Patient denies any chest pain shortness of breath. Patient also denies any other focal neurological deficit. - Related Data Home Medications Medication Instructions Recorded Confirmed Last Taken Losartan/Hydrochlorothiazide 1 each PO QDAY 12/14/16 12/14/16 12/14/16 06:30 [Losartan-Hctz 50-12.5 mg Tab] Previous Rx's Medication Instructions Recorded Last Taken Type Naproxen 500 mg PO Q12H PRN #12 tablet 08/17/17 Unknown Rx Allergies Allergy/AdvReac Type Severity Reaction Status Date / Time No Known Allergies Allergy Verified 12/14/16 07:23 ED Review of Systems ROS: Stated complaint: EYE PROBLEMS Other details as noted in HPI Comment: All other systems reviewed and negative ED Past Medical Hx - Past Medical History Hx Hypertension: Yes Hx CVA: No Hx Heart Attack/AMI: No Hx Congestive Heart Failure: No Hx Diabetes: Yes (NO MEDICATIONS) Hx Deep Vein Thrombosis: No Hx Pulmonary Embolism: No Hx GERD: No Hx Liver Disease: Yes (hep c. Pt has had anti viral therapy in past) Hx Renal Disease: No Hx Sickle Cell Disease: No Hx Arthritis: No Hx Headaches / Migraines: No Hx Seizures: No Hx Kidney Stones: No Hx Psychiatric Treatment: No Hx Asthma: No Hx COPD: No Hx Tuberculosis: No Hx Dementia: No Hx HIV: No Additional medical history: hep C - Surgical History Hx Coronary Stent: No Hx Open Heart Surgery: No Hx Pacemaker: No Hx Internal Defibrillator: No Hx Cholecystectomy: No Hx Appendectomy: No Hx Breast Surgery: No - Social History Smoking Status: Never Smoker Substance Use Type: None - Medications Home Medications: Home Medications Medication Instructions Recorded Confirmed Last Taken Type Losartan/Hydrochlorothiazide 1 each PO QDAY 12/14/16 12/14/16 12/14/16 06:30 History [Losartan-Hctz 50-12.5 mg Tab] Naproxen 500 mg PO Q12H PRN #12 tablet 08/17/17 Unknown Rx ED Physical Exam - General Limitations: No Limitations General appearance: alert, in no apparent distress - Head Head exam: Present: atraumatic, normocephalic - Eye Eye exam: Present: normal appearance - ENT ENT exam: Present: mucous membranes moist - Neck Neck exam: Present: normal inspection - Respiratory Respiratory exam: Present: normal lung sounds bilaterally. Absent: respiratory distress - Cardiovascular Cardiovascular Exam: Present: regular rate, normal rhythm. Absent: systolic murmur, diastolic murmur, rubs, gallop - GI/Abdominal GI/Abdominal exam: Present: soft, normal bowel sounds - Rectal Rectal exam: Present: deferred - Extremities Exam Extremities exam: Present: normal inspection - Back Exam Back exam: Present: normal inspection - Neurological Exam Neurological exam: Present: alert, oriented X3, CN II-XII intact, normal gait, reflexes normal, other (doing visual feels the patient's left eye has no abnormality the right eye the patient does have some central loss of visual field). Absent: motor sensory deficit - Psychiatric Psychiatric exam: Present: normal affect, normal mood - Skin Skin exam: Present: warm, dry, intact, normal color. Absent: rash ED Course Vital Signs 12/18/17 12/18/17 12/19/17 18:43 23:19 00:28 Temperature 98.1 F 98.7 F Pulse Rate 74 71 74 Respiratory 16 20 20 Rate Blood Pressure 186/92 205/112 Blood Pressure 205/112 175/106 [Right] O2 Sat by Pulse 96 100 99 Oximetry 12/19/17 12/19/17 12/19/17 01:05 05:20 05:46 Temperature 97.9 F Pulse Rate 63 67 67 Respiratory 20 17 Rate Blood Pressure 197/104 Blood Pressure 168/83 197/104 [Right] O2 Sat by Pulse 99 99 Oximetry Critical care attestation.: If time is entered above; I have spent that time in minutes in the direct care of this critically ill patient, excluding procedure time. ED Disposition Clinical Impression: Mass of pituitary Disposition: DC/TX-70 ANOTHER TYPE HLTHCARE Condition: Good Referrals: PRIMARY CARE,MD [Primary Care Provider] - 3-5 Days <ASHLEE [place] - Last Filed: 12/18/17 22:58> <ADRIANRICKLashell Mcguire - Last Filed: 12/19/17 07:23> ED Medical Decision Making - Radiology Data Radiology results: report reviewed, image reviewed FINDINGS: There is again seen a mass in the sella, which may be related to the pituitary gland, which measures approximately 2.6 centimeters transverse. The borders of the mass are not diagnostically defined on this exam to evaluate for possible change since the prior exam and postcontrast dedicated MRI of the sella should be performed. 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 There is no CT evidence of acute intracranial hemorrhage, hydrocephalus, or acute territorial infarction. The calvarium is intact. Visualized paranasal sinuses and mastoids are aerated. IMPRESSION: Sella turcica mass. Recommend further evaluation with dedicated MRI with contrast. Findings were discussed with KOBY Pereyra by telephone at 8:51 p.m. central standard time on 12/18/2017 Transcribed By: [facility] Dictated By: ANABELL RIZVI M.D. Electronically Authenticated By: ANABELL RIZVI M.D. Signed Date/Time: 12/18/17 1889 ED Disposition Is pt being admited?: No Does the pt Need Aspirin: No
--- NOTE | 2017-12-18 22:03 | Cat Scan Report ---
FINAL REPORT PROCEDURE: CT HEAD/BRAIN WO CON TECHNIQUE: Computerized tomography of the head was performed without contrast material. HISTORY: right visual field issue COMPARISON: 05/09/2017 FINDINGS: There is again seen a mass in the sella, which may be related to the pituitary gland, which measures approximately 2.6 centimeters transverse. The borders of the mass are not diagnostically defined on this exam to evaluate for possible change since the prior exam and postcontrast dedicated MRI of the sella should be performed. 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 There is no CT evidence of acute intracranial hemorrhage, hydrocephalus, or acute territorial infarction. The calvarium is intact. Visualized paranasal sinuses and mastoids are aerated. IMPRESSION: Sella turcica mass. Recommend further evaluation with dedicated MRI with contrast. Findings were discussed with KOBY Pereyra by telephone at 8:51 p.m. central standard time on 12/18/2017
[2017-12-18] MEDS ORDERED: ZESTRIL PO ONE (22:56)
[2017-12-18] MEDS ORDERED: HCTZ PO ONE (22:56)
[2017-12-19] MEDS ORDERED: CATAPRES ONE (05:27)
[2017-12-19] MEDS ORDERED: CATAPRES PO ONE (05:28)
[2017-12-19 05:45] VITALS: BP 197/104
== END 2017-12-19 05:41 | disposition other institution (70) ==
LOC: ED 18:14
DX: E23.7 Disorder of pituitary gland, unspecified (principal); I10 Essential (primary) hypertension; E11.9 Type 2 diabetes mellitus without complications
CPT/HCPCS: 70450; 99285; J2930

== ENCOUNTER 2017-12-25 07:28 | Emergency (ER) | payer OTHER ==
[2017-12-25 07:48] VITALS: BP 168/105
[2017-12-25] MEDS ORDERED: DELTASONE PO ONE (10:46)
--- NOTE | 2017-12-25 10:49 | Emergency Department Report ---
ED ENT HPI - General Chief complaint: Sore Throat Stated complaint: allergic reaction Time Seen by Provider: 12/25/17 10:44 Source: patient Mode of arrival: Ambulatory Limitations: No Limitations - History of Present Illness Initial comments: 62-year-old -[place] male who had the pleasure of seeing before comes in for complaint of his uvula Being swollen. Patient also has a past medical history of a pituitary mass and hypertension. Patient reports he has been taken his blood pressure medicine which is lisinopril 30mg. Blood pressure today was 168/105. Patient denies any fever or chills no nausea no vomiting. Patient does admit that he had spicy foods a few days ago. -: days(s) (2) - Related Data Previous Rx's Medication Instructions Recorded Last Taken Type Naproxen 500 mg PO Q12H PRN #12 tablet 08/17/17 Unknown Rx Amoxicillin [Amoxicillin TAB] 875 mg PO BID #14 tablet 12/25/17 Unknown Rx Lisinopril [Zestril] 40 mg PO QDAY #30 tablet 12/25/17 Unknown Rx amLODIPine [Norvasc] 10 mg PO DAILY #30 tab 12/25/17 Unknown Rx predniSONE [Deltasone] 20 mg PO ONCE 3 Days #3 tablet 12/25/17 Unknown Rx Allergies Allergy/AdvReac Type Severity Reaction Status Date / Time No Known Allergies Allergy Verified 12/14/16 07:23 ED Dental HPI - General Chief complaint: Sore Throat Stated complaint: allergic reaction Time Seen by Provider: 12/25/17 10:44 Source: patient Mode of arrival: Ambulatory Limitations: No Limitations - Related Data Previous Rx's Medication Instructions Recorded Last Taken Type Naproxen 500 mg PO Q12H PRN #12 tablet 08/17/17 Unknown Rx Amoxicillin [Amoxicillin TAB] 875 mg PO BID #14 tablet 12/25/17 Unknown Rx Lisinopril [Zestril] 40 mg PO QDAY #30 tablet 12/25/17 Unknown Rx amLODIPine [Norvasc] 10 mg PO DAILY #30 tab 12/25/17 Unknown Rx predniSONE [Deltasone] 20 mg PO ONCE 3 Days #3 tablet 12/25/17 Unknown Rx Allergies Allergy/AdvReac Type Severity Reaction Status Date / Time No Known Allergies Allergy Verified 12/14/16 07:23 ED Review of Systems ROS: Stated complaint: allergic reaction Other details as noted in HPI Constitutional: denies: chills, fever Eyes: denies: eye pain, eye discharge, vision change ENT: throat pain. denies: ear pain Respiratory: denies: cough, shortness of breath, wheezing Cardiovascular: denies: chest pain, palpitations Endocrine: no symptoms reported Gastrointestinal: denies: abdominal pain, nausea, diarrhea Genitourinary: denies: urgency, dysuria Musculoskeletal: denies: back pain, joint swelling, arthralgia Skin: denies: rash, lesions Neurological: denies: headache, weakness, paresthesias Psychiatric: denies: anxiety, depression Hematological/Lymphatic: denies: easy bleeding, easy bruising ED Past Medical Hx - Past Medical History Hx Hypertension: Yes Hx CVA: No Hx Heart Attack/AMI: No Hx Congestive Heart Failure: No Hx Diabetes: Yes (NO MEDICATIONS) Hx Deep Vein Thrombosis: No Hx Pulmonary Embolism: No Hx GERD: No Hx Liver Disease: Yes (hep c. Pt has had anti viral therapy in past) Hx Renal Disease: No Hx Sickle Cell Disease: No Hx Arthritis: No Hx Headaches / Migraines: No Hx Seizures: No Hx Kidney Stones: No Hx Psychiatric Treatment: No Hx Asthma: No Hx COPD: No Hx Tuberculosis: No Hx Dementia: No Hx HIV: No Additional medical history: hep C - Surgical History Hx Coronary Stent: No Hx Open Heart Surgery: No Hx Pacemaker: No Hx Internal Defibrillator: No Hx Cholecystectomy: No Hx Appendectomy: No Hx Breast Surgery: No - Social History Smoking Status: Never Smoker Substance Use Type: None - Medications Home Medications: Home Medications Medication Instructions Recorded Confirmed Last Taken Type Naproxen 500 mg PO Q12H PRN #12 tablet 08/17/17 Unknown Rx Amoxicillin [Amoxicillin TAB] 875 mg PO BID #14 tablet 12/25/17 Unknown Rx Lisinopril [Zestril] 40 mg PO QDAY #30 tablet 12/25/17 Unknown Rx amLODIPine [Norvasc] 10 mg PO DAILY #30 tab 12/25/17 Unknown Rx predniSONE [Deltasone] 20 mg PO ONCE 3 Days #3 tablet 12/25/17 Unknown Rx ED Physical Exam - General Limitations: No Limitations General appearance: alert, in no apparent distress - Head Head exam: Present: atraumatic, normocephalic - Eye Eye exam: Present: normal appearance - ENT ENT exam: Present: mucous membranes moist, other (edematous and erythematous uvula) - Neck Neck exam: Present: normal inspection - Respiratory Respiratory exam: Present: normal lung sounds bilaterally. Absent: respiratory distress - Cardiovascular Cardiovascular Exam: Present: regular rate, normal rhythm. Absent: systolic murmur, diastolic murmur, rubs, gallop - Rectal Rectal exam: Present: deferred - Extremities Exam Extremities exam: Present: normal inspection - Neurological Exam Neurological exam: Present: alert, oriented X3 - Psychiatric Psychiatric exam: Present: normal affect, normal mood - Skin Skin exam: Present: warm, dry, intact, normal color. Absent: rash ED Course Vital Signs 12/25/17 07:36 Temperature 97.8 F Pulse Rate 69 Respiratory 16 Rate Blood Pressure 168/105 O2 Sat by Pulse 97 Oximetry ED Medical Decision Making - Medical Decision Making Patient has been evaluated by this provider fast track. I discussed this patient that his uvula is swollen and red and appears to be uvulitis. Discussed the patient we'll give him 40 mg of prednisone I will add amlodipine to his hypertension regimen and he is to follow up with his primary care provider in the next 5-7 days. Patient verbalized understanding. Critical care attestation.: If time is entered above; I have spent that time in minutes in the direct care of this critically ill patient, excluding procedure time. ED Disposition Clinical Impression: Uvulitis Disposition: [id number] TO HOME OR SELFCARE Is pt being admited?: No Does the pt Need Aspirin: No Condition: Stable Instructions: Uvulitis (ED) Additional Instructions: Please take antibiotics as prescribed. Follow up primary care provider in 5-7 days. Prescriptions: amLODIPine [Norvasc] 10 mg PO DAILY #30 tab Amoxicillin [Amoxicillin TAB] 875 mg PO BID #14 tablet Lisinopril [Zestril] 40 mg PO QDAY #30 tablet predniSONE [Deltasone] 20 mg PO ONCE 3 Days #3 tablet Referrals: PRIMARY CARE, [Primary Care Provider] - 3-5 Days Forms: Work/School Release Form(ED)
== END 2017-12-25 11:04 | disposition home or self-care (01) ==
LOC: ED 07:28
DX: K12.2 Cellulitis and abscess of mouth (principal); I10 Essential (primary) hypertension; K76.9 Liver disease, unspecified
CPT/HCPCS: 99282; J7512

== ENCOUNTER 2018-01-07 14:44 | Emergency (ER) | payer OTHER ==
[2018-01-07 14:57] VITALS: BP 148/89
== END 2018-01-07 15:29 | disposition left against medical advice (07) ==
LOC: ED 14:44
DX: R51 Headache (principal); Z53.21 Procedure and treatment not carried out due to patient leaving prior to being seen by health care provider

== ENCOUNTER → 2018-01-18 17:18 | Emergency (ER) | payer OTHER | END | disposition left against medical advice (07) | LOC: ED 17:18 | DX: R51 Headache (principal); Z53.21 Procedure and treatment not carried out due to patient leaving prior to being seen by health care provider ==

== ENCOUNTER 2018-02-02 12:20 | Emergency (ER) | payer OTHER ==
[2018-02-02 12:27] VITALS: BP 145/70
== END 2018-02-02 14:05 | disposition left against medical advice (07) ==
LOC: ED 12:20
DX: Z76.0 Encounter for issue of repeat prescription (principal); Z53.21 Procedure and treatment not carried out due to patient leaving prior to being seen by health care provider

== ENCOUNTER 2018-02-10 19:48 | Emergency (ER) | payer OTHER ==
[2018-02-10 20:00] VITALS: BP 157/82
== END 2018-02-10 20:46 | disposition left against medical advice (07) ==
LOC: ED 19:48
DX: Z76.0 Encounter for issue of repeat prescription (principal); Z53.21 Procedure and treatment not carried out due to patient leaving prior to being seen by health care provider

== ENCOUNTER 2018-02-20 15:54 | Emergency (ER) | payer SELFPAY ==
[2018-02-20 16:01] VITALS: BP 150/83
== END 2018-02-20 16:01 | disposition left against medical advice (07) ==
LOC: ED 15:54
DX: I10 Essential (primary) hypertension (principal); Z53.21 Procedure and treatment not carried out due to patient leaving prior to being seen by health care provider